=== PATIENT | male | born 1990 | race Caucasian/White ===

== ENCOUNTER 2016-07-29 14:21 | Emergency (ER) | payer OTHER ==
[~2016-07-29] VITALS: Ht 185.4 cm; Wt 137.8 kg
[~2016-07-29 14:21] MED LIST: VENTOLIN HFA18 GM IH
[2016-07-29] MEDS ORDERED: 12 HOUR DECONG120 M1 PO (15:24)
[2016-07-29] MEDS ORDERED: NAPROSYN500 MG PO (15:24)
[2016-07-29] MEDS ORDERED: FLONASE16 G1 BOTH NARES (15:24)
[2016-07-29 15:50] VITALS: BP 156/77
== END 2016-07-29 16:17 | disposition home or self-care (01) ==
LOC: EME 14:21
DX: J32.9 Chronic sinusitis, unspecified (principal); H65.193 Other acute nonsuppurative otitis media, bilateral; R51 Headache
CPT/HCPCS: 99281; 99283